=== PATIENT | male | born 1940 | race African-American/Black ===

== ENCOUNTER 2023-06-30 00:25 | Inpatient (IN) | payer MEDICARE, MEDICAID ==
[~2023-06-30] VITALS: Ht 170.2 cm; Wt 85.3 kg
[2023-06-30 01:29] LABS: BASOPHILS % 0.8 % (0.0-2.0); EOSINOPHILS % 3.4 % (0.0-5.0); HEMATOCRIT. 46.6 % (42.0-52.0); HEMOGLOBIN. 15.3 g/dL (14.0-18.0); LYMPHOCYTES % 26.2 % (20.0-50.0); MEAN CORPUSCULAR HEMOGLOBIN 30.2 pg (28.0-32.0); MEAN CORPUSCULAR HGB CONC 32.9 g/dL (31.0-37.0); MEAN PLATELET VOLUME 9.3 fl (7.4-10.4); MONOCYTES % 9.2 % (2.0-8.0); NEUTROPHILS % 60.4 % (40.0-76.0); PLATELET 169 x1000/uL (130-400); RED BLOOD CELL COUNT 5.07 mill/uL (4.7-6.1); RED CELL DISTRIBUTION WIDTH 13.9 % (11.6-14.6); WHITE BLOOD COUNT 7.6 x1000/uL (4.5-11.0)
[2023-06-30 01:36] LABS: PROTHROMBIN TIME 10.9 sec (9.6-11.0)
[2023-06-30 01:43] LABS: ALANINE AMINOTRANSFERASE 25 IU/L (10-49); ALBUMIN 4.4 g/dL (3.2-4.8); ASPARTATE AMINOTRANSFERASE 28 IU/L (<34); BILIRUBIN TOTAL 0.5 mg/dL (0.1-1.0); CALCIUM 9.4 mg/dL (8.7-10.4); CARBON DIOXIDE 23 mEq/L (21-32); CHLORIDE 106 mEq/L (98-107); GLUCOSE 60 mg/dL (70-105); POTASSIUM 4.5 mEq/L (3.5-5.1); PROTEIN TOTAL 7.2 g/dL (6.0-8.3); SODIUM 136 mEq/L (136-145); UREA NITROGEN BLOOD 23 mg/dL (9-23)
[2023-06-30 01:51] LABS: TROPONIN I HIGH SENSITIVITY 119 ng/L (3.0-53)
[2023-06-30] MEDS: IOHEXOL-350 100 ML BOTTLE ONE (02:15)
[2023-06-30] MEDS ORDERED: CLONIDINE 0.1MG TABLET PO PRN (02:45)
[2023-06-30] MEDS ORDERED: ONDANSETRON HCL 4MG/2ML INJ IV PRN (02:45)
[2023-06-30] MEDS ORDERED: MAGNESIUM/ALUMINUM HYDROXIDE/SIMETHICONE 30ML UDC PO PRN (02:45)
[2023-06-30] MEDS ORDERED: ZOLPIDEM TARTRATE 5MG TABLET PO PRN (02:45)
[2023-06-30] MEDS ORDERED: ACETAMINOPHEN 325MG TABLET PO PRN ×2 (02:45)
[2023-06-30] MEDS ORDERED: DEXTROSE 50% WATER 50ML SYRINGE IV PRN (02:45)
[2023-06-30 04:12] VITALS: BP 146/98; PULSE 85; RESP 12; TEMP 98
[2023-06-30 04:19] VITALS: BP 146/98; PULSE 79; RESP 13; TEMP 98
[2023-06-30] MEDS: BLOOD SUGAR DIAGNOSTIC STRIP TEST SCH (06:50)
[2023-06-30] MEDS: INSULIN LISPRO 100 UNITS/ML SUBCUT SCH (06:56)
[2023-06-30] MEDS: SODIUM CHLORIDE 0.9% INJ 3ML FLUSH IVF SCH (06:56)
[2023-06-30 08:00] VITALS: BP 135/96; PULSE 86; RESP 13; TEMP 98.5
[2023-06-30] MEDS: ASPIRIN 81MG EC TABLET PO SCH (08:37)
[2023-06-30] MEDS: ENOXAPARIN 30MG/0.3ML SYR SUBCUT SCH (08:37)
[2023-06-30] MEDS: CLOPIDOGREL 75MG TABLET PO SCH (08:37)
[2023-06-30 09:58] LABS: TROPONIN I HIGH SENSITIVITY 92 ng/L (3.0-53)
[2023-06-30] MEDS: LOSARTAN 50 MG TABLET PO SCH (10:23)
[2023-06-30] MEDS: ENOXAPARIN 60MG/0.6ML SYR SUBCUT NR (10:24)
[2023-06-30] MEDS: LORAZEPAM 2MG/ML INJ IV PRN (11:48)
[2023-06-30 12:00] VITALS: BP 138/97; PULSE 99; RESP 22; TEMP 98.2
[2023-06-30 12:14] LABS: HEPATITIS B SURFACE ANTIGEN NEGATIVE (Negative); HEPATITIS C AB REACTIVE (Pos) (Negative)
[2023-06-30 16:00] VITALS: BP 116/69; PULSE 90; RESP 17; TEMP 98.9
[2023-06-30 18:23] LABS: TROPONIN I HIGH SENSITIVITY 98 ng/L (3.0-53)
[2023-06-30 20:00] VITALS: BP 116/96; PULSE 91; RESP 15; TEMP 98
[2023-06-30] MEDS: FAMOTIDINE 20MG TABLET PO SCH (20:57)
[2023-06-30] MEDS: CARVEDILOL 6.25 MG TABLET PO SCH (20:58)
[2023-06-30] MEDS: ATORVASTATIN CALCIUM 40MG TABLET PO SCH (20:58)
[2023-07-01] VITALS (7 sets, daily range): BP systolic 112–134; BP diastolic 67–86; PULSE 79–98; RESP 15–24; TEMP 97.5–98.9; O2SAT 95
[2023-07-01] MEDS: ENOXAPARIN 80MG/0.8ML SYR SUBCUT SCH (08:58)
== END 2023-07-01 20:02 | disposition home or self-care (01) | DRG 65 ==
LOC: ER 00:41 → 3WST 02:23 → EDBEDREQ 02:27 → EDBEDREQTM 02:27
PROVIDERS: ADMIT Internal Medicine; ATTEND Internal Medicine
DX: I63.49 Cerebral infarction due to embolism of other cerebral artery (principal); I42.9 Cardiomyopathy, unspecified; I69.351 Hemiplegia and hemiparesis following cerebral infarction affecting right dominant side; I51.3 Intracardiac thrombosis, not elsewhere classified; E11.22 Type 2 diabetes mellitus with diabetic chronic kidney disease; N18.9 Chronic kidney disease, unspecified; I12.9 Hypertensive chronic kidney disease with stage 1 through stage 4 chronic kidney disease, or unspecified chronic kidney disease; I45.10 Unspecified right bundle-branch block; I25.10 Atherosclerotic heart disease of native coronary artery without angina pectoris; E78.5 Hyperlipidemia, unspecified; I25.2 Old myocardial infarction; Z95.5 Presence of coronary angioplasty implant and graft; Z88.0 Allergy status to penicillin; Z79.02 Long term (current) use of antithrombotics/antiplatelets
CPT/HCPCS: 36415; 70496; 70498; 70551; 71045; 80053; 80061; 82962; 83036; 84484; 85025; 86705; 87340; 93005; 93306; 99291; J1650; J2060; Q9967